=== PATIENT | female | born 1975 | race Caucasian/White ===

== ENCOUNTER 2024-05-02 12:09 | Emergency (ER) | payer OTHER, SELFPAY ==
[2024-05-02 12:13] VITALS: BP 144/79; PULSE 69; TEMP 36.8; O2SAT 98; BMI 27.1
--- NOTE | 2024-05-02 12:19 | CT_ITS ---
The [address] [address] Patient Name: XIOMARA HINKLE MRN: [id number] date: 1975 Sex: F Assigned Patient Location: ER Current Patient Location: Accession/Order Number: [id number] Exam Date: 05/02/2024 12:33 Report Date: 05/02/2024 12:57 At the request of: JOHANNY MENDOZA Procedure: CT head/brain wo con EXAMINATION: CT head/brain wo con HISTORY: trauma ; fell 3 days ago striking back of head; facial tingling, left parietal region pain COMPARISON: No relevant comparison available. TECHNIQUE: Axial CT images were obtained without IV contrast. Dose reduction techniques were achieved by using automated exposure control and/or adjustment of mA and/or kV according to patient size and/or use of iterative reconstruction technique. FINDINGS: BRAIN: No edema, hemorrhage, mass, acute infarction, or inappropriate atrophy. CSF SPACES: No hydrocephalus, subarachnoid hemorrhage, or mass. Appropriate for age. SKULL: No fracture, mass, or other significant visible lesion. SINUSES: No significant mucosal thickening or fluid on the limited views. ORBITS: No appreciable abnormality on the limited views. OTHER: Negative CT/CT head/brain wo con IMPRESSION: 1. No abnormal or suspicious findings to account for patient's symptoms. Electronically authenticated by: AUTUMN DALAL Date: 05/02/2024 12:57
--- NOTE | 2024-05-02 13:18 | ED.HEATRA1 ---
HPI HPI - Head Injury General Chief complaint: Head Injury Stated complaint: HEAD INJURY FROM FALL Time Seen by Provider: 05/02/24 12:13 Source: patient Mode of arrival: walk-in History of Present Illness HPI Narrative: Patient presents to ED complaining of head injury. 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 Patient states she did not lose consciousness but did hit the back of her head. Patient states she has been having trouble concentrating at work since then and having headaches on and off. She then reports she had some pressure in the left side of her head and tingling on the left side of her face so she was concerned. She called her doctor and they are trying to get prior Auth for a CT scan but she was concerned and came into the ER for further evaluation. She said she called the insurance [employer] couple of times and they said they were still working on it. She was concerned with the headache and pressure so she came in for evaluation and CAT scan. She is alert and oriented tearful due to feeling anxious about the situation but otherwise no acute distress. Neurologically intact. Related Data Home Medications ?Medication ?Instructions ?Recorded ?Confirmed No Known Home Medications 05/02/24 05/02/24 Allergies Allergy/AdvReac Type Severity Reaction Status Date / Time No Known Drug Allergies Allergy Verified 05/02/24 12:13 Opioid HPI Opioid Management Most Recent Pain and Opioid Data: No Data to Display Review of Systems ROS Status of ROS 10 or more systems reviewed and unremarkable except as noted in history and below PFSH PFSH Social History Little interest or pleasure in doing things: not at all Feeling down, depressed, or hopeless: not at all Exam Narrative Exam Narrative: General: alert, no acute distress Cardiovascular: regular rate and rhythm, normal peripheral perfusion. Respiratory: Lungs CTA, respirations non labored. Extremities: no deformity, no trauma. Neurological: oriented x 4, LOC appropriate for age. PERRLA, EOMI No neck tenderness Constitutional Vital Signs, click to edit/add: Last Vital Signs Temp 98.3 F 05/02/24 12:13 Pulse 69 05/02/24 12:13 Resp 16 05/02/24 12:13 BP 144/79 H 05/02/24 12:13 Pulse Ox 98 05/02/24 12:13 O2 Del Method Room Air 05/02/24 12:13 Course Vital Signs Vital signs: Vital Signs Temperature 98.3 F 05/02/24 12:13 Pulse Rate 69 05/02/24 12:13 Respiratory Rate 16 05/02/24 12:13 Blood Pressure 144/79 H 05/02/24 12:13 Pulse Oximetry 98 05/02/24 12:13 Oxygen Delivery Method Room Air 05/02/24 12:13 Temperature 98.3 F 05/02/24 12:13 Pulse Rate 69 05/02/24 12:13 Respiratory Rate 16 05/02/24 12:13 Blood Pressure 144/79 H 05/02/24 12:13 Pulse Oximetry 98 05/02/24 12:13 Oxygen Delivery Method Room Air 05/02/24 12:13 MDM - Head Injury MDM Narrative Medical decision making narrative: CT scan negative for acute findings. Patient most likely has a postconcussion syndrome. Continue Tylenol Motrin stay hydrated. Rest and take breaks at work. Return to ED if worsening symptoms. Patient comfortable care plan for home. Differential Diagnosis Differential diagnosis: Likely concussion without loss of consciousness, epidural hematoma, closed head injury, subarachnoid hematoma, postconcussion syndrome and subdural hematoma Imaging Data CT scan - head: Radiologist's impression: ITS Impressions Head CT 05/02/24 12:19 IMPRESSION: 1. No abnormal or suspicious findings to account for patient's symptoms. Electronically authenticated by: AUTUMN DALAL Date: 05/02/2024 12:57 Discharge Plan Discharge Chief Complaint: Head Injury Clinical Impression: Closed head injury, Postconcussion syndrome Patient Disposition: Home, Self-Care Time of Disposition Decision: 13:02 Condition: Good Mode of Transportation: Private Vehicle Prescriptions / Home Meds: No Action No Known Home Medications Print Language: Romansh Instructions: Post Concussion Syndrome (ED) Referrals: Physician,Non-Staff, MD [Physician] - 1 week Discharge Date/Time: 05/02/24 13:10
== END 2024-05-02 13:10 | disposition home or self-care (01) ==
PROVIDERS: Emergency Provider Emergency Medicine; PCP Family Medicine
DX: S09.8XXA Other specified injuries of head, initial encounter (principal); F07.81 Postconcussional syndrome; W17.89XA Other fall from one level to another, initial encounter
CPT/HCPCS: 70450; 99284